=== PATIENT | male | born 1995 | race Caucasian/White ===

== ENCOUNTER 2016-12-14 18:17 | Emergency (ER) | payer SELFPAY ==
[2016-12-14 18:29] VITALS: BP 167/87; BMI 36.9
[2016-12-14] MEDS ORDERED: SILVADENE ONE (18:37)
[2016-12-14] MEDS ORDERED: ADACEL TDaP IM ONE ×2 (18:40→18:41)
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
[2016-12-14] MEDS ORDERED: SILVADENE TOP NR ×2 (19:00)
== END 2016-12-14 19:45 | disposition home or self-care (01) ==
LOC: ER 18:23
PROC: 2W2LX4Z Dressing of Right Lower Extremity using Bandage (ICD-10-PCS; principal; 2016-12-14)
PROC: 2W23X4Z Dressing of Abdominal Wall using Bandage (ICD-10-PCS; principal; 2016-12-14)
DX: T21.12XA Burn of first degree of abdominal wall, initial encounter (principal); T21.22XA Burn of second degree of abdominal wall, initial encounter; T21.26XA Burn of second degree of male genital region, initial encounter; T21.16XA Burn of first degree of male genital region, initial encounter; X12.XXXA Contact with other hot fluids, initial encounter; Y92.9 Unspecified place or not applicable
CPT/HCPCS: 90471; 99282

== ENCOUNTER 2017-02-10 18:44 | Emergency (ER) | payer SELFPAY ==
[2017-02-10 18:51] VITALS: BP 145/88; BMI 35.7
[2017-02-10] MEDS ORDERED: TETRACAINE HCL ONE (19:43)
[2017-02-10] MEDS ORDERED: NS 1000 ML 1,000 ML ONE (19:45)
[2017-02-10] MEDS ORDERED: XYLOCAINE VISCOUS ONE (19:47)
--- NOTE | 2017-02-10 19:57 | DR.GENAD ---
HPI - PCP Primary Care Physician: NFD - HPI Comment HPI Comment: Pt has been spraying potassium nitrate this week. He noted pink eyes on Tuesday and the have gotten progressively worse. he now c/o painful eyes , sore throat and feeling weak. - Complaint/Symptoms Chief Complaint Doctors Comments: "Painful eyes" Chief Complaint:: PATIENT STATED BOTH EYES HAS WHEAT HE CALLS [facility] AND HIS THROAT IS SORE AND IT IS PAINFUL TO SWOLLOW - Nurses notes reviewed Nurses Notes Review: Yes - Source History Provided: Patient - Mode of Arrival Mode of Arrival: Ambulatory - Timing Onset of Chief Complaint: 02/06/17 PMH - PMH Past Medical History: No Past Surgical History: Yes Surgical History: Tonsillectomy - Family History History of Family Medical Conditions: No - Social History Does patient currently use any type of tobacco product: No Have you used tobacco products in the last 12 months: No Type of Tobacco Use: Smokeless How many years tobacco product used: 6 Does any household member use tobacco: No Alcohol Use: None Do you use any recreational Drugs:: No Lives With: Family Lives Where: Home - infectious screening In the last 2 months have you had wt loss of >10#?: NO Have you had fever, night sweats or hemotysis?: No Have you traveled outside the country in the last 6 months?: No Isolation: Standard ROS - Review of Systems Constitutional: No Symptoms Reported Eyes: See HPI, Eye Pain ENTM: No Symptoms Reported, Throat Pain Respiratoy: No Symptoms Reported Cardiovascular: No Symptoms Reported Gastrointestinal/Abdominal: No Symptoms Reported Genitourinary: No Symptoms Reported Neurological: No Symptoms Reported Musculoskeletal: No Symptoms Reported Integumentary: No Symptoms Reported Hematologic/Lymphatic: No Symptoms Reported Endocrine: No Symptoms Reported Psychiatric: No Symptoms Reported All Other Systems: Reviewed and Negative PE - Vital Signs Vitals: Temperature 99.9 F Pulse Rate 100 Respiratory Rate 16 Blood Pressure 145/88 O2 Sat by Pulse Oximetry 100 - General Limitations: No Limitations General Appearance: Alert, Anxious - Head Head Exam: Normal Inspection - Eyes Eye exam: Conjunctival Injection - ENT ENT Exam: Normal Exam, Normal Oropharynx, Normal External Ear Exam, Mucous Membranes Moist External Ear Exam: Normal External Inspection TM/Canal Exam: Bilateral Normal Mouth Exam: Normal Inspection Throat Exam: Normal Inspection - Neck Neck Exam: Normal Inspection, Full ROM, Trachea Midline - Chest Chest Inspection: Normal Inspection - Respiratory Respiratory Exam: Normal Lung Sounds Bilat Respiratory Exam: Bilateral Clear to Auscultation - Cardiovascular Cardiovascular Exam: Regular Rate, Normal Rhythm, Normal Heart Sounds - Abdominal Exam Abdominal Exam: Normal Inspection, Normal Bowel Sounds, Soft - Extremities Extremities Exam: Normal Inspection, Full ROM - Back Back Exam: Normal Inspection - Neurologic Neurological Exam: Alert, Oriented X3 - Psychiatric Psychiatric Exam: Normal Affect, Normal Mood - Skin Skin Exam: Warm, Dry, Intact, Normal Color MDM - Differential Diagnosis Differential Diagnosis: uveitis, iritis, viral syndrome ROR - Labs Reviewed Result Diagrams: 02/10/17 20:16 02/10/17 20:16 Laboratory: WBC 11.5 X10^3/uL (3.6-10.0) H 02/10/17 20:16 RBC 5.03 X10^6/uL (4.7-6.0) 02/10/17 20:16 Hgb 14.9 g/dL (13.5-18.0) 02/10/17 20:16 Hct 42.9 % (42.0-54.0) 02/10/17 20:16 MCV 85.3 fL (80.0-100.0) 02/10/17 20:16 MCH 29.7 pg (27.0-34.0) 02/10/17 20:16 MCHC 34.8 g/dL (33.0-35.0) 02/10/17 20:16 RDW 13.0 % (11.6-16.5) 02/10/17 20:16 Plt Count 345 X10^3/uL (150.0-450.0) 02/10/17 20:16 MPV 9.5 fL (7.4-11.0) 02/10/17 20:16 Neut % 74.8 % (42.0-75.0) 02/10/17 20:16 Lymph % 15.4 % (21.0-51.0) L 02/10/17 20:16 [place] % 6.4 % (0.0-13.0) 02/10/17 20:16 Eos % 2.8 % (0.9-2.9) 02/10/17 20:16 Baso % 0.6 % (0.2-1.0) 02/10/17 20:16 Neut # 8.6 x10^3/uL (2.2-4.8) H 02/10/17 20:16 Lymph # 1.8 X10^3/uL (1.3-2.9) 02/10/17 20:16 [place] # 0.7 x10^3/uL (0.3-0.8) 02/10/17 20:16 Eos # 0.3 x10^3/uL (0.0-0.2) H 02/10/17 20:16 Baso # 0.1 X10^3/uL (0.0-0.1) 02/10/17 20:16 Absolute Nucleated RBC 0.0 /100WBC 02/10/17 20:16 Sodium 143 mmol/L (136-145) 02/10/17 20:16 Corrected Sodium TNP 02/10/17 20:16 Potassium 3.6 mmol/L (3.5-5.1) 02/10/17 20:16 Chloride 108 mmol/L (98-107) H 02/10/17 20:16 Carbon Dioxide 27.8 mmol/L (21-32) 02/10/17 20:16 BUN 8 mg/dL (7-18) 02/10/17 20:16 Creatinine 1.09 mg/dL (0.70-1.30) 02/10/17 20:16 Est GFR (MDRD) Af Amer > 60 (>60) 02/10/17 20:16 Est GFR (MDRD) Non-Af > 60 (>60) 02/10/17 20:16 Glucose 83 mg/dL (65-99) 02/10/17 20:16 Calcium 8.9 mg/dL (8.5-10.1) 02/10/17 20:16 Corrected Calcium TNP 02/10/17 20:16 Total Bilirubin 0.40 mg/dL (0.2-1.0) 02/10/17 20:16 AST 17 Units/L (15-37) 02/10/17 20:16 ALT 32 Units/L (12-78) 02/10/17 20:16 Alkaline Phosphatase 78 Units/L (46-116) 02/10/17 20:16 Total Protein 7.6 g/dL (6.4-8.2) 02/10/17 20:16 Albumin 3.8 g/dL (3.4-5.0) 02/10/17 20:16 Globulin 3.8 g/dL (2.5-4.5) 02/10/17 20:16 Albumin/Globulin Ratio 1.0 Ratio (1.1-2.1) L 02/10/17 20:16 Streptococcus Screen Positive (NEGATIVE) A 02/10/17 21:13 Procedures - Eye Procedure Alcaine Drops Administered: Yes Eye Irrigated w/ Saline (ccs): 20 (patient d/lucie irrigation due to pain) Antibiotic Oinment/Drps Admin: both eyes Progress: better - Diagnosis Discharge Problem: Uveitis, anterior, Strep pharyngitis Corneal abrasion Qualifiers: Encounter type: initial encounter Laterality: left Qualified Code(s): S05.02XA - Injury of conjunctiva and corneal abrasion without foreign body, left eye, initial encounter - Discharge Plan Disposition: 01 HOME, SELF-CARE Condition: Stable - Follow ups/Referrals Follow ups/Referrals: NFD,None [Primary Care Provider] - 3 days - Instructions Instructions: Uveitis, Uveitis, [id number], Strep Throat, Rapid Strep Test
[2017-02-10] MEDS ORDERED: NS 1000 ML 1,000 ML IV ONE (20:00)
[2017-02-10] MEDS ORDERED: TETRACAINE HCL AFFEYE ONE (20:00)
[2017-02-10] MEDS ORDERED: GENTAK OPHTH OINT EACHEYE ONE (20:00)
[2017-02-10] MEDS ORDERED: XYLOCAINE VISCOUS MT ONE (20:00)
[2017-02-10] MEDS ORDERED: FUL-GLO STRIP ONE (20:04)
[2017-02-10] MEDS ORDERED: GENTAK OPHTH OINT ONE (20:05)
[2017-02-10 20:39] LABS: BASOPHILS # (AUTO) 0.1 X10^3/uL (0.0-0.1); BASOPHILS % (AUTO) 0.6 % (0.2-1.0); EOSINOPHILS # (AUTO) 0.3 x10^3/uL (0.0-0.2); EOSINOPHILS % (AUTO) 2.8 % (0.9-2.9); HEMATOCRIT 42.9 % (42.0-54.0); HEMOGLOBIN 14.9 g/dL (13.5-18.0); LYMPHOCYTES # (AUTO) 1.8 X10^3/uL (1.3-2.9); LYMPHOCYTES % (AUTO) 15.4 % (21.0-51.0); MEAN CORPUSCULAR HEMOGLOBIN 29.7 pg (27.0-34.0); MEAN CORPUSCULAR HGB CONC 34.8 g/dL (33.0-35.0); MEAN CORPUSCULAR VOLUME 85.3 fL (80.0-100.0); MEAN PLATELET VOLUME 9.5 fL (7.4-11.0); MONOCYTES # (AUTO) 0.7 x10^3/uL (0.3-0.8); MONOCYTES % (AUTO) 6.4 % (0.0-13.0); NEUTROPHILS # (AUTO) 8.6 x10^3/uL (2.2-4.8); NEUTROPHILS % (AUTO) 74.8 % (42.0-75.0); PLATELET COUNT 345 X10^3/uL (150.0-450.0); RED BLOOD COUNT 5.03 X10^6/uL (4.7-6.0); WHITE BLOOD COUNT 11.5 X10^3/uL (3.6-10.0)
[2017-02-10 21:00] LABS: ALANINE AMINOTRANSFERASE 32 Units/L (12-78); ALBUMIN 3.8 g/dL (3.4-5.0); ALKALINE PHOSPHATASE 78 Units/L (46-116); ASPARTATE AMINO TRANSFERASE 17 Units/L (15-37); BLOOD UREA NITROGEN 8 mg/dL (7-18); CALCIUM 8.9 mg/dL (8.5-10.1); CARBON DIOXIDE 27.8 mmol/L (21-32); CHLORIDE 108 mmol/L (98-107); CREATININE 1.09 mg/dL (0.70-1.30); GLUCOSE 83 mg/dL (65-99); SODIUM 143 mmol/L (136-145); TOTAL PROTEIN 7.6 g/dL (6.4-8.2); eGFR BLACK RACES > 60 (>60); eGFR NON BLACK RACES > 60 (>60)
[2017-02-10] MEDS ORDERED: TORADOL 60 MG VIAL IM ONE (21:17)
[2017-02-10] MEDS ORDERED: TORADOL 60 MG VIAL ONE (21:17)
[2017-02-10] MEDS ORDERED: DECADRON INJ IM ONE (21:29)
[2017-02-10] MEDS ORDERED: ROCEPHIN VIAL 2 GM IM ONE (21:35)
[2017-02-10] MEDS ORDERED: DECADRON INJ ONE (21:37)
[2017-02-10] MEDS ORDERED: ROCEPHIN VIAL 2 GM ONE (21:37)
[2017-02-10] MEDS ORDERED: ROCEPHIN VIAL 2 GM IM NR (22:00)
--- NOTE | 2017-02-10 22:17 | RAD ---
Chest, two views Indication: Hemoptysis Comparison: None Findings: The cardiac silhouette is unremarkable. The lungs are mildly hypoinflated but essentially clear without focal infiltrates, pleural effusion, or pneumothorax. The bony thorax is unremarkable. Impression: No acute cardiopulmonary disease. Reported By:
== END 2017-02-10 22:10 | disposition home or self-care (01) ==
LOC: ER 18:54
DX: S05.02XA Injury of conjunctiva and corneal abrasion without foreign body, left eye, initial encounter (principal); H20.9 Unspecified iridocyclitis; J02.0 Streptococcal pharyngitis; R04.2 Hemoptysis; Y33.XXXA Other specified events, undetermined intent, initial encounter; Y92.9 Unspecified place or not applicable
CPT/HCPCS: 36415; 71020; 80053; 85025; 87880; 96372; 99283; J0696; J1100; J1885